=== PATIENT | male | born 1950 | race Caucasian/White ===

== ENCOUNTER 2021-09-05 18:49 | Inpatient (IN) | payer MEDICARE, MEDICAID ==
[2021-09-05] MEDS ORDERED: Furosemide 40 MG/4 ML VIAL IV ONE (18:57)
[2021-09-05] MEDS ORDERED: Albuterol/Ipratropium 3.0-0.5 MG/3 ML Neb Soln NEB ONE (19:27)
[2021-09-05 19:56] LABS: CHLORIDE,CL 104 mmol/L (98-107); SODIUM,NA 141 mmol/L (136-145)
[2021-09-05 19:57] LABS: ANION GAP 13.3 mmol/L (5-15)
[2021-09-05] MEDS ORDERED: cefTRIAXone 1 GM Vial IVPUSH ONE (21:11)
[2021-09-05] MEDS ORDERED: Docusate Sodium 100 MG Cap PO PRN (21:45)
[2021-09-05] MEDS ORDERED: Bisacodyl 5 MG Tab PO PRN (21:45)
[2021-09-05] MEDS ORDERED: Sodium Chloride 0.9% 500 ML IV ONE (21:47)
[2021-09-05] MEDS ORDERED: Iopamidol 755 Mg/ML 100 ML Bottle IVPUSH ONE (22:51)
[2021-09-05] MEDS: Valproic Acid 250 MG/5 ML Soln 5 ML UD Cup PO SCH (23:55)
[2021-09-06] MEDS: Albuterol/Ipratropium 3.0-0.5 MG/3 ML Neb Soln NEB PRN (00:09)
[2021-09-06 07:29] LABS: CHLORIDE,CL 104 mmol/L (98-107); SODIUM,NA 141 mmol/L (136-145)
[2021-09-06 07:31] LABS: ANION GAP 12.6 mmol/L (5-15)
[2021-09-06] MEDS ORDERED: Enoxaparin 40 MG/0.4 ML Syringe SUBCUT SCH (09:00)
[2021-09-06] MEDS: Valproic Acid 250 MG/5 ML Soln 5 ML UD Cup PO SCH ×2 (09:18→20:11)
[2021-09-06] MEDS: Finasteride 5 MG Tab PO SCH (09:20)
[2021-09-06] MEDS: Pantoprazole 40 MG Tab.CR PO SCH ×2 (09:20→20:12)
[2021-09-06] MEDS: Tamsulosin 0.4 MG Cap.ER PO SCH (09:20)
[2021-09-06] MEDS: QUEtiapine 100 MG Tab PO SCH ×3 (09:22→20:12)
[2021-09-06] MEDS: Sertraline 50 MG Tab PO SCH (09:22)
[2021-09-06] MEDS: Doxycycline 100 MG Cap PO SCH ×2 (09:56→20:12)
[2021-09-06] MEDS: Enoxaparin 80 MG/0.8 ML Syringe SUBCUT SCH ×2 (09:56→20:12)
[2021-09-06] MEDS: cefTRIAXone 1 GM Vial IVPUSH SCH (09:56)
[2021-09-06] MEDS: Sodium Chloride 0.9% 1,000 ML IV SCH ×3 (09:57→19:33)
[2021-09-07] MEDS: Albuterol/Ipratropium 3.0-0.5 MG/3 ML Neb Soln NEB PRN ×2 (01:50→02:24)
[2021-09-07] MEDS ORDERED: Furosemide 20 MG/2 ML VIAL IV ONE ×2 (02:16→08:00)
[2021-09-07 07:03] LABS: CHLORIDE,CL 106 mmol/L (98-107); SODIUM,NA 144 mmol/L (136-145)
[2021-09-07 07:04] LABS: ANION GAP 10.5 mmol/L (5-15)
[2021-09-07] MEDS: QUEtiapine 100 MG Tab PO SCH ×3 (08:22→21:20)
[2021-09-07] MEDS: Pantoprazole 40 MG Tab.CR PO SCH ×2 (08:23→21:19)
[2021-09-07] MEDS: Finasteride 5 MG Tab PO SCH (08:23)
[2021-09-07] MEDS: Sertraline 50 MG Tab PO SCH (08:23)
[2021-09-07] MEDS: Valproic Acid 250 MG/5 ML Soln 5 ML UD Cup PO SCH ×2 (08:23→21:19)
[2021-09-07] MEDS: Tamsulosin 0.4 MG Cap.ER PO SCH (08:23)
[2021-09-07] MEDS: Doxycycline 100 MG Cap PO SCH ×2 (08:23→21:19)
[2021-09-07] MEDS: Enoxaparin 80 MG/0.8 ML Syringe SUBCUT SCH ×2 (11:28→21:20)
[2021-09-07] MEDS: cefTRIAXone 1 GM Vial IVPUSH SCH (11:29)
[2021-09-08 08:30] LABS: CHLORIDE,CL 107 mmol/L (98-107); SODIUM,NA 147 mmol/L (136-145)
[2021-09-08 08:32] LABS: ANION GAP 10.3 mmol/L (5-15)
[2021-09-08] MEDS ORDERED: Potassium Chloride 10 MEQ Tab.ER PO ONE (09:44)
[2021-09-08] MEDS: Doxycycline 100 MG Cap PO SCH (09:56)
[2021-09-08] MEDS: cefTRIAXone 1 GM Vial IVPUSH SCH (09:56)
[2021-09-08] MEDS: Tamsulosin 0.4 MG Cap.ER PO SCH (10:03)
[2021-09-08] MEDS: Finasteride 5 MG Tab PO SCH (10:04)
[2021-09-08] MEDS: QUEtiapine 100 MG Tab PO SCH ×3 (10:04→20:20)
[2021-09-08] MEDS: Sertraline 50 MG Tab PO SCH (10:04)
[2021-09-08] MEDS: Valproic Acid 250 MG/5 ML Soln 5 ML UD Cup PO SCH ×2 (10:06→20:19)
[2021-09-08] MEDS: Pantoprazole 40 MG Tab.CR PO SCH ×2 (10:06→20:20)
[2021-09-08] MEDS: Enoxaparin 80 MG/0.8 ML Syringe SUBCUT SCH ×2 (10:06→20:19)
[2021-09-09] MEDS ORDERED: Flumazenil 0.1 MG/ML 5 ML MDV IVPUSH PRN (02:02)
[2021-09-09] MEDS ORDERED: LORazepam 2 MG/ML SDV IVPUSH ONE (02:02)
[2021-09-09 08:16] LABS: CHLORIDE,CL 108 mmol/L (98-107); SODIUM,NA 148 mmol/L (136-145)
[2021-09-09 08:21] LABS: ANION GAP 11.5 mmol/L (5-15)
[2021-09-09] MEDS: Enoxaparin 80 MG/0.8 ML Syringe SUBCUT SCH ×2 (09:11→20:59)
[2021-09-09] MEDS: Finasteride 5 MG Tab PO SCH (09:11)
[2021-09-09] MEDS: Valproic Acid 250 MG/5 ML Soln 5 ML UD Cup PO SCH ×2 (09:12→20:59)
[2021-09-09] MEDS: Pantoprazole 40 MG Tab.CR PO SCH ×2 (09:12→20:58)
[2021-09-09] MEDS: Tamsulosin 0.4 MG Cap.ER PO SCH (09:12)
[2021-09-09] MEDS: Sertraline 50 MG Tab PO SCH (09:14)
[2021-09-09] MEDS: Albuterol/Ipratropium 3.0-0.5 MG/3 ML Neb Soln NEB PRN (11:38)
[2021-09-09] MEDS: QUEtiapine 100 MG Tab PO SCH ×3 (12:56→20:58)
[2021-09-10] MEDS: Albuterol/Ipratropium 3.0-0.5 MG/3 ML Neb Soln NEB PRN ×3 (03:50→20:42)
[2021-09-10 07:27] LABS: CHLORIDE,CL 110 mmol/L (98-107); SODIUM,NA 150 mmol/L (136-145)
[2021-09-10 07:28] LABS: ANION GAP 12.7 mmol/L (5-15)
[2021-09-10] MEDS: Sertraline 50 MG Tab PO SCH (10:27)
[2021-09-10] MEDS: guaiFENesin 600 MG Tab.ER PO SCH ×2 (10:28→20:04)
[2021-09-10] MEDS: predniSONE 20 MG Tab PO SCH (10:28)
[2021-09-10] MEDS: Valproic Acid 250 MG/5 ML Soln 5 ML UD Cup PO SCH ×2 (10:28→20:03)
[2021-09-10] MEDS: QUEtiapine 100 MG Tab PO SCH ×3 (10:28→20:04)
[2021-09-10] MEDS: Tamsulosin 0.4 MG Cap.ER PO SCH (10:28)
[2021-09-10] MEDS: Finasteride 5 MG Tab PO SCH (10:29)
[2021-09-10] MEDS: Pantoprazole 40 MG Tab.CR PO SCH ×2 (10:29→20:43)
[2021-09-10] MEDS: Enoxaparin 80 MG/0.8 ML Syringe SUBCUT SCH ×2 (10:29→20:04)
[2021-09-11 07:29] LABS: ANION GAP 13.1 mmol/L (5-15); CHLORIDE,CL 108 mmol/L (98-107); SODIUM,NA 149 mmol/L (136-145)
[2021-09-11] MEDS: Sertraline 50 MG Tab PO SCH (09:50)
[2021-09-11] MEDS: Enoxaparin 80 MG/0.8 ML Syringe SUBCUT SCH (09:50)
[2021-09-11] MEDS: Valproic Acid 250 MG/5 ML Soln 5 ML UD Cup PO SCH (09:50)
[2021-09-11] MEDS: Pantoprazole 40 MG Tab.CR PO SCH (09:51)
[2021-09-11] MEDS: Tamsulosin 0.4 MG Cap.ER PO SCH (09:51)
[2021-09-11] MEDS: predniSONE 20 MG Tab PO SCH (09:51)
[2021-09-11] MEDS: guaiFENesin 600 MG Tab.ER PO SCH (09:51)
[2021-09-11] MEDS: QUEtiapine 100 MG Tab PO SCH ×2 (09:51→14:53)
[2021-09-11] MEDS: Finasteride 5 MG Tab PO SCH (09:51)
== END 2021-09-11 13:35 | DRG 177 ==
LOC: VM.ED 18:49 → VM.MS 21:11
PROVIDERS: ADMIT Family Medicine; ATTEND Family Medicine
DX: J69.0 Pneumonitis due to inhalation of food and vomit (principal); J96.02 Acute respiratory failure with hypercapnia; R09.02 Hypoxemia; W19.XXXA Unspecified fall, initial encounter; Z79.899 Other long term (current) drug therapy; J96.01 Acute respiratory failure with hypoxia; I26.99 Other pulmonary embolism without acute cor pulmonale; G21.19 Other drug induced secondary parkinsonism; E78.5 Hyperlipidemia, unspecified; F20.9 Schizophrenia, unspecified; F71 Moderate intellectual disabilities; G40.909 Epilepsy, unspecified, not intractable, without status epilepticus; K21.9 Gastro-esophageal reflux disease without esophagitis; K59.00 Constipation, unspecified; N40.0 Benign prostatic hyperplasia without lower urinary tract symptoms; F79 Unspecified intellectual disabilities; E78.00 Pure hypercholesterolemia, unspecified; K59.09 Other constipation; F41.9 Anxiety disorder, unspecified; F81.9 Developmental disorder of scholastic skills, unspecified; F91.9 Conduct disorder, unspecified; Z79.52 Long term (current) use of systemic steroids; Z90.49 Acquired absence of other specified parts of digestive tract; Z66 Do not resuscitate; Z20.822 Contact with and (suspected) exposure to COVID-19
CPT/HCPCS: 36415; 71045; 71275; 74176; 80048; 80053; 83605; 83880; 84145; 85025; 85027; 85379; 86140; 92610-GN; 94640; 94760; 96374; 96375; 99284; 99285-25; A9270-GY; J0696; J1650; J1940; J2060; J7030; J7512; J7620-GY; Q9967; U0002

== ENCOUNTER 2022-09-28 20:00 | Emergency (ER) | payer MEDICARE, MEDICAID | END 2022-09-28 21:45 | disposition home or self-care (01) | LOC: VM.ED 20:00 | DX: S60.221A Contusion of right hand, initial encounter (principal); K21.9 Gastro-esophageal reflux disease without esophagitis; Z79.899 Other long term (current) drug therapy | CPT/HCPCS: 73130-RT; 73630-RT; 99284 ==

== ENCOUNTER 2022-11-08 14:55 | Emergency (ER) | payer MEDICARE, MEDICAID ==
[2022-11-08 15:28] LABS: BASOPHILS PERCENT AUTO 0.2 % (0.2-1.2); HEMOGLOBIN 17.5 g/dL (14.0-18.0); IMMATURE GRAN ABSOLUTE AUTO 0.03 x10^3/uL (0.00-0.07); LYMPHOCYTES ABSOLUTE AUTO 0.6 x10^3/uL (1.0-4.8); LYMPHOCYTES PERCENT AUTO 3.7 % (25.0-50.0); MEAN CORPUSCULAR HEMOGLOBIN 29.7 pg (26.0-32.0); MEAN CORPUSCULAR VOLUME 84.9 fL (78.0-93.0); MONOCYTES ABSOLUTE AUTO 0.6 x10^3/uL (0.0-0.8); MONOCYTES PERCENT AUTO 3.6 % (2.0-11.0); NEUTROPHILS ABSOLUTE AUTO 14.6 x10^3/uL (1.8-7.7); PLATELET COUNT,PLT 244 x10^3/uL (130-400); RED BLOOD CELL COUNT 5.89 x10^6/uL (4.5-6.0); WHITE BLOOD CELL COUNT,WBC 15.8 x10^3/uL (4.0-10.0)
[2022-11-08 15:42] LABS: NEUTROPHILS PERCENT AUTO 92.3 % (50.0-80.0)
[2022-11-08 15:44] LABS: A/G RATIO 0.76; ALANINE AMINOTRANSFERASE,ALT 74 U/L (16-63); ALBUMIN 3.8 g/dL (3.4-5.0); ALKALINE PHOSPHATASE 134 U/L (46-116); ASPARTATE AMNIOTRANSFERASE,AST 58 U/L (15-37); BILIRUBIN TOTAL 1.1 mg/dL (0.2-1.0); BLOOD UREA NITROGEN,BUN 20 mg/dL (7-18); C-REACTIVE PROTEIN 5.75 mg/dL (<=0.30); CALCIUM 9.7 mg/dL (8.5-10.1); CARBON DIOXIDE,CO2 27 mmol/L (21-32); CHLORIDE,CL 100 mmol/L (98-107); CREATININE 1.4 mg/dL (0.70-1.30); GLUCOSE RANDOM 160 mg/dL (70-99); LIPASE 17 U/L (19-71); POTASSIUM,K 4.2 mmol/L (3.5-5.1); PROTEIN TOTAL,TP 8.8 g/dL (6.4-8.2); SODIUM,NA 141 mmol/L (136-145)
[2022-11-08 15:49] LABS: ANION GAP 18.2 mmol/L (5-15); ESTIMATED GFR 53 mL/min (>=60)
[2022-11-08] MEDS ORDERED: Iopamidol 612 MG/ML 100 ML Bottle IVPUSH ONE (16:04)
[2022-11-08] MEDS ORDERED: Lactated Ringers 1,000 ML IV ONE (17:00)
[2022-11-08] MEDS ORDERED: cefTRIAXone 1 GM Vial IVPUSH ONE (17:54)
== END 2022-11-08 18:20 | disposition home or self-care (01) ==
LOC: VM.ED 14:55
DX: K59.00 Constipation, unspecified (principal); J18.9 Pneumonia, unspecified organism; K21.9 Gastro-esophageal reflux disease without esophagitis; Z79.899 Other long term (current) drug therapy
CPT/HCPCS: 36415; 74019; 74177; 80053; 83690; 85025; 86140; 96361; 96374; 99284-25; J0696; J7120